=== PATIENT | female | born 1940 | race Caucasian/White ===

== ENCOUNTER → 2016-06-29 | Outpatient (CLI) | payer OTHER ==
[~2016-06-29] MED LIST: ACET-1138 PO; ASPEC81 PO; BIOT10CA PO; CLB200 PO; CLC100 PO; FAMO20TA12 PO; LEVO50TA6 PO; METO50TA7 PO; MULT-506 PO; OXYSR10 PO; PANT40TA PO; PRAV20TA PO; RXC5 PO
--- NOTE | 2016-06-29 14:51 | MAMMOGRAPHY REPORT ---
BILATERAL DIGITAL DIAGNOSTIC MAMMOGRAM TOMOSYNTHESIS WITH CAD AND TARGETED RIGHT ULTRASOUND: 06/29/19 17 CLINICAL HISTORY: Follow-up of a right 6:00 breast asymmetry. The patient also presented for a mass seen on ultrasound in the right breast at 8:00, however, on the day of the biopsy the mass was not seen. The patient denies any current complaints. TECHNIQUE: Breast tomosynthesis in addition to standard 2D mammography was performed. Current study was also evaluated with a Computer Aided Detection (CAD) system. Bilateral CC and MLO 2-D and juan diego synthesis images were obtained. COMPARISON: Comparison is made to exam dated: 06/29/2015 ultrasound - [facility]. BREAST COMPOSITION: The tissue of both breasts is heterogeneously dense, which may obscure small ma sses. FINDINGS: There are no suspicious masses, calcifications, or areas of architectural distortion note d in either breast. There has been no significant interval change compared to prior exams. The asy mmetry seen within the right 6:00 breast is stable compared to prior exams including the 2013 exam, and has the appearance of normal fibroglandular tissue on the tomosynthesis images. Scattered bilat eral benign-appearing calcifications are not significantly changed. A biopsy marker clip is again n oted in the left upper outer quadrant. Targeted ultrasound was performed of the right 6:00 breast in the region of the previously seen asym metry. An incidental oval anechoic benign simple cyst measuring 5 x 2 mm is seen within the right b reast at 6:00, 4 cm from the nipple. Targeted ultrasound was also performed of the right 8:00 breas t, 3-4 cm in the nipple, in the region of the previously seen possible mass. No suspicious mass or other suspicious sonographic abnormalities are seen in this region. IMPRESSION: ACR BI-RADS CATEGORY 2: BENIGN, TARGETED ULTRASOUND ACR BI-RADS CATEGORY 2: BENIGN The right 6:00 breast asymmetry is benign and compatible with normal fibroglandular tissue, with no corresponding sonographic abnormality evident. No mass is seen within the right 8:00 breast on ultr asound. There is no mammographic evidence of malignancy in either breast. A 1 year screening mammo gram is recommended. The patient has been verbally notified of the results. Approximately 10% of breast cancers are not detected with mammography. A negative mammographic repor t should not delay biopsy if a clinically suggestive mass is present. Belinda Lua M.D. ah/:06/29/2016 14:26:56 Ornamental Iron Worker: Nikki SKY(Justen)(M), [facility] letter sent: Normal 1/2 BI-RADS Code: ACR BI-RADS Category 2: Benign Ultrasound BI-RADS: ACR BI-RADS Category 2: Benign
== END | disposition home or self-care (01) ==
LOC: C.MAMM 13:49
PROVIDERS: ATTEND Surgery
DX: R92.2 Inconclusive mammogram (principal)

== ENCOUNTER → 2017-07-24 | Outpatient (CLI) | payer OTHER ==
[~2017-07-24] MED LIST changes: -METO50TA7 PO; +METO50TA8 PO
--- NOTE | 2017-07-25 08:02 | MAMMOGRAPHY REPORT ---
BILATERAL DIGITAL SCREENING MAMMOGRAM TOMOSYNTHESIS WITH CAD: 07/24/2017 CLINICAL HISTORY: Routine screening. Patient has no complaints. TECHNIQUE: Bilateral breast tomosynthesis in addition to standard 2D mammography was performed. Curr ent study was also evaluated with a Computer Aided Detection (CAD) system. COMPARISON: Comparison is made to exams dated: 06/29/2016 ultrasound, 06/29/2016 mammogram, and 016 ultrasound - [facility]. BREAST COMPOSITION: There are scattered areas of fibroglandular density in both breasts. FINDINGS: There is a 7 mm nodular asymmetry in the lateral, middle one third of the left breast only seen on the CC view (tomosynthesis slice 21/62), for which additional spot compression tomosynthesis views and possible ultrasound are recommended. There are mild vascular calcifications and scattered benign-appearing rodlike, rim and round calcific ations in both breasts. No other suspicious mass, architectural distortion or cluster of microcalcif ications is seen. IMPRESSION: ACR BI-RADS CATEGORY 0: INCOMPLETE EVALUATION: NEED ADDITIONAL IMAGING EVALUATION The 7 mm nodular asymmetry in the lateral left breast on the CC view needs additional evaluation. The patient will be called to schedule an appointment. Approximately 10% of breast cancers are not detected with mammography. A negative mammographic report should not delay biopsy if a clinically suggestive mass is present. Grace Griffin M.D. ay/:07/24/2017 15:02:12 Wheat Washer: Rola CASEY)(Keira), [facility] letter sent: Addl Imaging 0 BI-RADS Code: ACR BI-RADS Category 0: Incomplete Evaluation: Need Additional Imaging Evaluation
== END | disposition home or self-care (01) ==
LOC: C.MAMM 13:37
PROVIDERS: ATTEND Family Medicine
DX: Z12.31 Encounter for screening mammogram for malignant neoplasm of breast (principal); N64.89 Other specified disorders of breast

== ENCOUNTER → 2017-08-14 | Outpatient (CLI) | payer OTHER ==
--- NOTE | 2017-08-14 15:12 | MAMMOGRAPHY REPORT ---
UNILATERAL LEFT DIGITAL DIAGNOSTIC MAMMOGRAM TOMOSYNTHESIS AND TARGETED LEFT ULTRASOUND: 08/14/2017 CLINICAL HISTORY: 76-year-old woman called back from screening mammography for a nodular asymmetry in the lateral left breast, only seen on the CC view. Family history unknown. TECHNIQUE: Spot compression left CC and MLO tomosynthesis images were obtained. COMPARISON: Comparison is made to exams dated: 07/24/2017 mammogram, 06/29/2016 ultrasound, 06/29/2016 mammogram, and 06/29/2015 ultrasound - [facility]. BREAST COMPOSITION: There are scattered areas of fibroglandular density in the left breast. FINDINGS: The spot compression CC tomosynthesis views demonstrate a 4 mm nodular asymmetry in the lef t lateral breast in the area of previously observed 7 mm nodular asymmetry. This may be positional a nd further evaluation with ultrasound was performed. Additionally, there is a questionable area of a rchitectural distortion in the superior, middle one third of the left breast on the MLO view, which d oes not definitely correspond to any true distortion on the spot compression CC views. Nevertheless, further evaluation with ultrasound was also performed in the superior left breast. No other masses, asymmetries, areas of distortion or suspicious calcifications identified. There are moderate vascul ar calcifications and a stable metallic biopsy marker clip in the 12:00 left breast. Targeted ultrasound was performed throughout the superior left breast with attention to the lateral breast in the area of nodular mammographic asymmetry. In the 2:00 left breast, 3 cm from the nipple , there is a hypoechoic solid versus cystic round circumscribed mass measuring 3.7 x 3.8 x 3.5 mm. T his likely correlates with the persistent mammographic nodular asymmetry and is indeterminate even th e possible solid nature. Definitive characterization with an ultrasound-guided core needle biopsy is recommended. Throughout the remainder of the superior left breast, no sonographic evidence of archi tectural distortion is seen in real-time scanning. No other suspicious solid or cystic mass is seen. The distortion most likely represents normal overlapping tissue although pending benign pathology r esults in the left 2:00 axis, would recommend follow-up diagnostic tomosynthesis mammograms of the le ft breast in 6 months to ensure stability. IMPRESSION: ACR BI-RADS CATEGORY 4: SUSPICIOUS, TARGETED ULTRASOUND ACR BI-RADS CATEGORY 4: SUSPICIO US 1. Left breast ultrasound-guided core biopsy is recommended for an indeterminate solid versus cystic 4 mm mass in the 2:00 axis, thought to correlate with the initial nodular mammographic asymmetry. T he size differences are likely due to positioning and the sonographic measurements are felt to be mor e accurate. 2. A questionable area of architectural distortion is identified in the superior middle one third of the left breast on the spot compression MLO view, without corresponding abnormality seen in the CC p rojection and no suspicious sonographic correlate identified. This most likely represents normal ove rlapping fibroglandular tissue although pending the benign pathology results in the 2:00 axis, a shor t interval follow-up left diagnostic tomosynthesis mammogram and possible ultrasound is recommended t o ensure stability in 6 months. These results and recommendations were discussed with the patient at the time of the exam. She tenta tively scheduled the left breast biopsy prior to leaving our department. Approximately 10% of breast cancers are not detected with mammography. A negative mammographic report should not delay biopsy if a clinically suggestive mass is present. Grace Griffin M.D. ay/:08/14/2017 10:43:38 Supervisor Grounds: Jada CASEY)(Keira), [facility] letter sent: Abnormal 4/5 BI-RADS Code: ACR BI-RADS Category 4: Suspicious Ultrasound BI-RADS: ACR BI-RADS Category 4: Suspici ous
== END | disposition home or self-care (01) ==
LOC: C.MAMM 09:37
PROVIDERS: ATTEND Family Medicine
DX: N64.89 Other specified disorders of breast (principal); N63.21 Unspecified lump in the left breast, upper outer quadrant

== ENCOUNTER → 2017-08-27 | Outpatient (CLI) | payer OTHER ==
--- NOTE | 2017-08-27 11:41 | Discharge Instructions ---
Discharge Instructions Procedure Procedure Date: Aug 27, 2017. Reason for visit: Left Mass. Discharge Discharge Date: Aug 27, 2017. Discharge Diagnosis: post left breast ultrasound guided core biopsy Instructions Activity Recommendations: Additional Limitations (see below) Return to School/Work: no limitations Recommended Home Diet: No Limitations Provider Instructions: ACTIVITY RECOMMENDATIONS: * No lifting, pushing, pulling or exercising the affected side for three days. RETURN TO SCHOOL/WORK: * You may return to work/school after the procedure, but do not perform any strenuous activities for 24 to 48 hours. MEDICATIONS: * Tylenol (two 325 mg) every four to six hours if needed for mild pain (if not allergic to Tylenol). DIET: * Resume previous diet. SPECIAL CARE INSTRUCTIONS: * Keep biopsy site dry for 24 hours. May shower after 24 hours, but do not soak (bathe) incision. * May remove Tegaderm (plastic patch) tomorrow AFTER showering. * Leave the steri-strips on for one week. Allow the steri-strips to fall off by themselves. If not off after one week, you may remove them. You may place a Bandaid crosswise over the strips, if desired. * Apply ice 10 minutes on and 10 minutes off as needed. * Wear a bra at bedtime to sleep more comfortably for 2-3 days. * Your referring physician should have the results after approximately 5 to 7 business days. * Call for unusual bleeding, fever, drainage, etc or if you have any questions call [phone] during normal business hours or after hours call Dr Griffin, . FOLLOW UP VISIT: Follow-up with Referring Physician as scheduled. Allergies Coded Allergies: Penicillins (Verified Allergy, Unknown, INSIDE OF MOUTH BECAME "RAW", 10/18) Tuberculin (Verified Allergy, Unknown, SEVERE SWELLING OF ARM, 10/19/15) Juliano Saul Recommendations: Call your doctor if: * Temperature above 101 degrees * Pain not relieved by pain medicine ordered * There is increased drainage or redness from any incision * You have any unanswered questions or concerns. Your Doctors Instructions noted above were prepared by provider Grace Griffin. Patient Signature Section: Patient Instructions Signature Page Carolina Miner Patient (or Guardian) Signature/Date: I have read and understand the instructions given to me by my caregivers. Caregiver/RN/Doctor Signature/Date: The above-named patient and/or guardian has received patient instructions on this date. + Original Patient Signature Page (only) stays with chart. Please make copy for patient.
--- NOTE | 2017-08-27 12:40 | MAMMOGRAPHY REPORT ---
ULTRASOUND GUIDED BIOPSY LEFT BREAST: 08/27/2017 CLINICAL HISTORY: Indeterminate 4 mm hypoechoic mass in the 2:00 left breast. Patient presents for u ltrasound-guided core needle biopsy. COMPARISON: Comparison is made to exams dated: 08/14/2017 ultrasound, 08/14/2017 mammogram, 07/24/2017 mammogram, 06/29/2016 ultrasound, 06/29/2016 mammogram, and 06/29/2015 ultrasound - [facility]. PATIENT CONSENT: The procedure, risks and benefits were discussed with the patient and informed conse nt was obtained both verbally and in writing. Specific risks to this procedure include: bleeding, in fection, puncture of adjacent structure, nontarget biopsy, sampling error, pain, metal allergy and me dication reaction. PROCEDURE DESCRIPTION: A time out was performed and the left breast was agreed as the site of biopsy. The skin was prepped and draped in the usual sterile fashion. The 4 mm hypoechoic circumscribed mass in the 2:00 left breast was chosen as the target for biopsy. Subcutaneous and intraparenchymal 1% bu ffered lidocaine, with and without epinephrine, was administered as local anesthesia. A skin incision was made. Through the incision, 3 samples were taken with a 14 gauge Achieve biopsy device. The ma ss significantly decreased in size after the first biopsy sample. A ribbon shaped metallic marker wa s placed at the biopsy site. Hemostasis was achieved after manual compression. The patient tolerated the procedure well and there was no immediate complication. The samples were sent to the pathology d [facility] in an appropriately labeled container. Postprocedure left CC and ML tomosynthesis images were obtained. A new ribbon-shaped biopsy marker c lip is identified in the 2:00 middle one third of the left breast. Based on the CC projection, the b iopsy clip aligns with the initial nodular asymmetry in question, confirming mammographicsonographic correlation. Pending benign pathology results, recommend follow-up diagnostic tomosynthesis mammogr ams and possible ultrasound of the left breast in 6 months to ensure stability of a possible area of architectural distortion identified in the superior middle one third of the breast on the spot compre ssion MLO view. IMPRESSION: ULTRASOUND GUIDED BIOPSY 1. Status post ultrasound-guided core biopsy of an indeterminate circumscribed 4 mm hypoechoic mass in the 2:00 left breast, with ribbon-shaped biopsy marker clip placed at the site. The biopsy marker clip aligns with the nodular asymmetry in question based on the 07/24/2017 screening mammogram. 2. Pending benign pathology results, recommend follow-up left diagnostic tomosynthesis mammograms an d possible ultrasound to ensure stability of an area of questionable architectural distortion, withou t sonographic correlate in the superior left breast. The patient will receive notification of the biopsy results from her referring physician. Grace Griffin M.D. ay/:08/27/2017 12:00:35 Vp Digital Marketing Social Media And Crm: Yuliya SKY(Justen)(Keira), [facility]
--- NOTE | 2017-08-27 12:44 | MAMMOGRAPHY REPORT ---
UNILATERAL LEFT DIGITAL DIAGNOSTIC MAMMOGRAM TOMOSYNTHESIS: 08/27/2017 CLINICAL HISTORY: Status post ultrasound-guided core biopsy of an indeterminate 4 mm hypoechoic mass in the 2:00 left breast. Please refer the report from left breast ultrasound-guided core biopsy performed at the same time for full detail. IMPRESSION: POST PROCEDURE IMAGING FOR MARKER PLACEMENT Please refer the report from left breast ultrasound-guided core biopsy performed at the same time for full detail. Approximately 10% of breast cancers are not detected with mammography. A negative mammographic report should not delay biopsy if a clinically suggestive mass is present. Grace Griffin M.D. ay/:08/27/2017 11:15:06 Manager Client: Yuliya CASEY)(Keira), [facility] BI-RADS Code: Post Procedure Imaging For Marker Placement
== END | disposition home or self-care (01) ==
LOC: C.MAMM 10:51
PROVIDERS: ATTEND Family Medicine
DX: N63.20 Unspecified lump in the left breast, unspecified quadrant (principal); N60.12 Diffuse cystic mastopathy of left breast; N60.92 Unspecified benign mammary dysplasia of left breast